=== PATIENT | female | born 1990 | race Caucasian/White ===

== ENCOUNTER 2016-06-28 12:18 | Emergency (ER) | payer MEDICAID ==
[~2016-06-28] VITALS: Ht 160 cm; Wt 100.5 kg
[~2016-06-28 12:18] MED LIST: AMOX500C6 PO; IBUP-727 PO; PRED20TA PO
[2016-06-28 12:23] VITALS: Ht 160 cm; Wt 100.5 kg
[2016-06-28 14:25] LABS: URINE BLOOD (Dip) POC Trace-intact (NEGATIVE)
[2016-06-28] MEDS ORDERED: NITR-58 PO (14:53)
[2016-06-28] MEDS ORDERED: ACET500C5 PO (14:53)
[2016-06-28 15:04] VITALS: TEMP 98.4
--- NOTE | 2016-06-28 15:39 | ERD ---
ER Documentation Chief Complaint Date/Time DATE: 06/28/16 TIME: 15:33 Chief Complaint dizziness, feels head numbness HPI Patient is a 25-year-old female who presents to the ED with dizziness for 2 weeks, headache off and on, lightheadness. She states that she feels nauseous when she does not eat. She denies neck pain or stiffness. Denies chest pain, cough, shortness of breath or difficulty breathing. Denies abdominal pain, nausea, vomiting, diarrhea or constipation. Denies stating that is the worst headache of her life. She has not taken any medication for symptoms. ROS All systems reviewed and are negative except as per history of present illness. Medications Home Meds Active Scripts Acetaminophen* (Tylophen*) 500 Mg Capsule, 1 CAP PO Q6H Y for PAIN AND OR ELEVATED TEMP, #20 CAP Prov:HIMA SANCHEZ PA-C 06/28/16 Nitrofurantoin Monohyd Macrocr* (Macrobid*) 100 Mg Capsr, 100 MG PO BID for 7 Days, CAP Prov:HIMA SANCHEZ PA-C 06/28/16 Reported Medications Ibuprofen (Motrin) 600 Mg Tablet, 600 MG PO PRN 04/25/12 Amoxicillin* (Amoxil*) 500 Mg Capsule, 500 MG PO TID 04/25/12 Prednisone (Prednisone) 20 Mg Tablet, 40 MG PO DAILY 04/25/12 Allergies Allergies: Coded Allergies: No Known Allergy (Unverified , 12/19/13) PMhx/Soc Medical and Surgical Hx: pt denies Medical Hx, pt denies Surgical Hx History of Surgery: No Anesthesia Reaction: No Hx Neurological Disorder: No Hx Respiratory Disorders: No Hx Cardiac Disorders: No Hx Psychiatric Problems: No Hx Miscellaneous Medical Probl: No Hx Alcohol Use: No Hx Substance Use: No Hx Tobacco Use: No Physical Exam Vitals Vital Signs Date Time Temp Pulse Resp B/P Pulse Ox O2 Delivery O2 Flow Rate FiO2 06/28/16 15:04 98.4 06/28/16 12:23 98.2 99 128/87 99 Physical Exam GENERAL: Well-developed, well-nourished female. Appears in no acute distress. HEAD: Normocephalic, atraumatic. EYES: Pupils are equally reactive bilaterally. EOMs grossly intact. No conjunctival erythema. ENT: Moist mucous membranes. No uvula deviation. No kissing tonsils. No exudates. NECK: Supple. No lymphadenopathy or thyromegaly. No meningismus. negative kernig. negative brudinski. LUNG: Clear to auscultation bilaterally. No rhonchi, wheezing, rales or coarse breath sounds. HEART: Regular rate and rhythm. No murmurs, rubs or gallops. ABDOMEN: No scars, ecchymosis or rashes noted. Soft, nontender, and nondistended. Positive bowel sounds in all four quadrants. No rebound tenderness , no guarding. (-) McBurneys point tenderness. No CVA tenderness. BACK: No midline tenderness. Extremities: Equal pulses bilaterally. No peripheral clubbing, cyanosis or edema. No unilateral leg swelling. NEUROLOGIC: Alert and oriented. Moving all four extremities. 5/5 strength in all extremities. Normal speech. Steady gait. Cranial nerves II through XII intact. No ataxia negative Romberg SKIN: Normal color. Warm and dry. No rashes or lesions. Capillary refill < 2 seconds Results 24 hrs Laboratory Tests Test 06/28/16 14:24 06/28/16 14:28 Bedside Urine pH (LAB) 5.5 Bedside Urine Protein (LAB) Negative Bedside Urine Glucose (UA) Negative Bedside Urine Ketones (LAB) Trace Bedside Urine Blood Trace-intact Bedside Urine Nitrite (LAB) Negative Bedside Urine Leukocyte Esterase (L 1+ Bedside Glucose 115mg/dL Procedures/MDM ER COURSE: I kept the patient and/or family informed of laboratory and diagnostic imaging results throughout the emergency room course. IMAGING STUDIES/LABORATORY STUDIES EKG performed, read by Dr. Castellanos 92bpm, normal sinus rhythm, normal axis, no acute ST segment changes, no T wave inversion Accu-Chek 115 Urine dip showed 1+ leukocytes MEDICAL DECISION MAKING: This is a 25-year-old who presents with dizziness, lightheadedness on and off for the last 2 weeks. Vital signs were reviewed. Patient is afebrile. Patient is not hypoxic. Patient is not toxic or ill-appearing. Patient likely has cystitis. Low suspicion for ovarian torsion, PID, tuboovarian abscess, ectopic , bowel obstruction, pyelonephritis, appendicitis, cervicitis, septic , molar , HELLP syndrome, preeclampsia, eclampsia, placenta previa, placenta abruptia. Risks versus benefits of a CT scan were discussed with patient. Low suspicion for intracranial hemorrhage, meningitis, intracranial mass, concussion, temporal arteritis, stroke, elevated intracranial pressure, seizure. Low suspicion for hypoglycemia. Negative test. DISCHARGE: At this time, patient is stable for discharge and outpatient management with no new complaints during the ER course. Patient was sent home with Macrobid and Tylenol and a note for work.. Patient will be discharged home with instructions to recheck for new or worsening symptoms such as fever, nausea, weakness, LOC and to follow up with primary care in the next 1-2 days. Patient was advised to return to the ER for any new or worsening symptoms. Plan was discussed and patient and/or family understands and agrees. Home instructions were given. Departure Diagnosis: Primary Impression: UTI (urinary tract infection) Urinary tract infection type: site unspecified Hematuria presence: with hematuria Qualified Code: N39.0 - Urinary tract infection with hematuria, site unspecified Condition: Stable Patient Instructions: Understanding Urinary Tract Infections (UTIs) Additional Instructions: Call your primary care doctor TOMORROW for an appointment during the next 1-2 days.See the doctor sooner or return here if your condition worsens before your appointment time. HIMA SANCHEZ PA-C Jun 28, 2016 15:39
== END 2016-06-28 15:04 | disposition home or self-care (01) ==
LOC: FTE 12:18
DX: N39.0 Urinary tract infection, site not specified (principal)
CPT/HCPCS: 81003; 82962; 93005; Z7502

== ENCOUNTER 2017-09-30 07:15 | Emergency (ER) | END 2017-09-30 09:36 | disposition home or self-care (01) ==